=== PATIENT | female | born 1935 | race Caucasian/White ===

== ENCOUNTER 2016-11-26 14:49 | Inpatient (IN) | payer MEDICARE, BC ==
[~2016-11-26] VITALS: Ht 162.6 cm; Wt 131.4 kg
--- NOTE | ~2016-11-26 | ESTC ---
Cardiac Perfusion Imaging Demographics Patient Name GABBI Collado Gender Female Patient Number [id number] Race Visit Number [id number] Ethnicity Corporate ID Room Number G3217 Accession Number [id number] Height 64 inches Date of 1935 Weight 163 pounds Interpreting Ruby Ramirez Date of study 11/28/2016 Physician Supervising /JUAN F Ramirez NM Technologist Yoli Busch MD Ordering Physician Ruby Ramirez Stress Bryanna Lang MD installation technician RVT Stress ECG Reading Ruby Ramirez Nurse Tennille Paez RN Physician Procedure Procedure Type: Nuclear Stress Test:Pharmacological, Lexiscan, Cardiolite Stress Test Procedure Start time: 11/28/2016 10:30 Indications: History of CAD. Risk Factors The patient risk factors include:obesity, hypercholesterolemia and diabetes mellitus. Conclusions Summary Large moderate ischemia involving anteroseptal,anterior and lateral clark. Normal EF and WM. Stress Protocols Resting ECG RSR. Non-specific ST-T changes. Pre-stress physical exam: un changed. Predicted HR: 138 bpm ECG Findings No ECG changes suggestive of ischemia. Arrhythmias No rhythm abnormality. Symptoms No symptoms with Lexiscan infusion. Stress Interpretation Normal hemodynamic response to Lexiscan. No symptoms. No EKG changes of ischemia. No arrythmias. Imaging Results Applied corrections - Motion correction applied High risk findings Summed scores - Summed stress score: 23 - Summed rest score: 13 - Summed difference score: 10 Stress ejection Ejection fraction:61 % EDV :134 ml ESV :52 ml Stroke volume :82 ml LV mass :152 gr LV size:Normal Normal LV function Imaging Protocols Rest Stress Isotope:Tc99m Sestamibi IV Isotope: Tc99m Sestamibi IV Isotope dose:15.2 mCi Isotope dose:42.3 mCi Date:11/28/2016 07:28 Date:11/28/2016 10:52 Technique: SPECT Technique: Gated Supine SPECT Supine Procedure Medications - Regadenoson (Lexiscan) 0.4 mg IV over 10-15 sec. I.V. 0.4 mg. Medical History Admission Data Admission date: 11/28/2016 Admission Time: 08:00 Hospital Status: Inpatient. Signatures dtt: Ashley Beltran dtgopi: 11/28/16 1030 Physician Self Edit
--- NOTE | ~2016-11-26 | ECHO ---
Transthoracic Echocardiography Report (TTE) Demographics Patient Name BRITTANY SEO Date of Study 12/02/2016 Patient Number [id number] Visit Number [id number] Date of 1935 Room Number G6329 Gender Female Number Age 81 year(s) Referring Ruby Ramirez Fishing Instructor Lucy Johnson RVT, Physician MD JENAE Washington MD Physician Interpreting Ruby Ramirez Yard Switcher Physician Supervising Ordering Ruby Ramirez MD/MLP Physician Nurse Stress Campaign Coordinator Conclusions Contractility Score Summary At rest the following contractility abnormalities were noted: Hypokinesis of the Mid anterior, the Mid tennille-septal, the Mid infero-septal, the Apical inferior, the Apical septal, the Apical lateral, the Apical anterior and the Apical cap segments. Contractility of all other segments appeared normal. Summary Technically difficult exam. Definity not used to better delineate due to the patient not having IV access. The estimated left ventricular ejection fraction is 40%.The left ventricle is mildly dilated .Moderate concentric left ventricular hypertrophy.Severely hypokinetic distal half of anerior wall,anterior septum and apex. The left atrium is severely dilated by LA volume index measurement. MAC. Trivial MR. Trivial TR. Compared to previous study dated 11/30/2016 the WMAs and EF of 40% are new(60%). Procedure Type of Study TTE procedure:2D Echocardiogram, M-Mode, Doppler , Color Doppler. Procedure Date Date: 12/02/2016 Start: 08:56 AM Study Location: Inpatient Portable Technical Quality: Fair due to body habitus. Indications:Abnormal ECG and Post PTCA. Appropriate Use Criteria: 9 Patient Status: Routine HR: 79 bpm BP: 148/69 mmHg Allergies - No known allergies. M-Mode/2D Measurements LV Diastolic Dimension: 5.82 cm LV Systolic Dimension: 4.84 cm LV Septum Diastolic: 1.05 cm LV PW Diastolic: 1.24 cm AO Root Dimension: 2.2 cm Cardiac Output: 5.57 l/min LA Dimension: 3.2 cm LVOT: 1.9 cm LVOT VTI: 24.9 cm RV Base: 3.45 cm LV Stroke volume: 70.56 ml RV Length: 7.04 cm TAPSE: 2.02 cm TDI-S': 11 cm/s Doppler Measurements AV Peak Velocity: 1.34 m/s MV Peak E-Wave: 1.01 m/s AV Peak Gradient: 7.18 mmHg MV Peak A-Wave: 1.7 m/s AV Mean Gradient: 4 mmHg MV E/A Ratio: 0.59 LVOT Peak Velocity: 1.11 m/s MV P1/2t: 62 msec TR Gradient:9.99 mmHg PV Peak Velocity: 1.9 m/s Estimated RAP:15 mmHg PV Peak Gradient: 14.44 mmHg Estimated RVSP: 25 mmHg Estimated PASP: 24.99 mmHg E' Septal Velocity: 0.04 m/s A' Septal Velocity: 0.12 m/s E' Lateral Velocity: 0.05 m/s A' Lateral Velocity: 0.15 m/s Findings Left Ventricle The left ventricle is mildly dilated .Moderate concentric left ventricular hypertrophy.LVEF:40%.Distal anterior wall,distal septum and apex are severely hypokinetic. Right Ventricle Normal right ventricle structure and function. Left Atrium The left atrium is severely dilated by LA volume index measurement. Right Atrium The right atrium is not well visualized.Increased RA pressures. Mitral Valve Trivial mitral regurgitation by color Doppler. Mild mitral annular calcification. Aortic Valve Normal aortic valve structure and function. Tricuspid Valve Trivial tricuspid regurgitation by color Doppler. Pulmonic Valve Normal pulmonic valve structure and function. Pericardial Effusion Small anterior pericardial effusion. Miscellaneous Visualized portions of the aortic root and ascending aorta appear normal in size. Pleural Effusion No evidence of pleural effusion. Contractility Score LV regional wall motion:(0-Non visualized 1-Normal 2-Hypokinesis 3-Akinesis 4-Dyskinesis 5-Aneurysm) Signature dtt: Ashley Beltran dtd: 12/02/16 0856 Physician Self Edit
--- NOTE | ~2016-11-26 | CON ---
PATIENT'S NAME: BRITTANY SEO [facility] AGE: 81 Y [address] ROOM: [place] [address] LOCATION: [facility] ADMIT DATE: 11/26/2016 Consultation DISCHARGE DATE: FAMILY PHYSICIAN: TRISH BRANDON MD ATTENDING PHYSICIAN: TRISH BRANDON DATE OF CONSULTATION: 11/27/2016 REFERRING PHYSICIAN: Trish Brandon MD REASON FOR VISIT: Wound Care visit to evaluate and treat a left second toe ulcer. HISTORY OF PRESENT ILLNESS: This is a very pleasant 81-year-old female patient who was admitted to [facility] with nausea/vomiting and dehydration. The patient has a significant history of type 2 diabetes mellitus, hypertension, obesity, coronary artery disease, and venous stasis dermatitis. She reports she did not know that she had an ulcer to her left foot until 2 days ago. She reports never having diabetic ulcers before. She does not wear custom orthotics or diabetic footwear. She does not wear gradient compression devices. She denies peripheral neuropathy. She denies foot pain. She reports a good oral intake. She reports her nausea and vomiting came on about 4 days prior to admission. She denies fevers, chills, or sweats. She reports she is able to tolerate food well now. She lives in [place] with her son. PAST MEDICAL HISTORY: Diabetes mellitus, type 2; hypertension; obesity; coronary artery disease; venous stasis dermatitis; cardiac stent; lower leg edema; and history of uterine cancer. PAST SURGICAL HISTORY: Bilateral total knee arthroplasties, right total hip surgery, bilateral cataract removals, total abdominal hysterectomy, and cardiac stents. FAMILY HISTORY: The patient's parents did not suffer from lower leg edema or diabetic foot ulcers. ALLERGIES: NO KNOWN MEDICATION ALLERGIES. SOCIAL HISTORY: The patient lives with her son in [place], [place]. She is normally able to complete her activities of daily living. She denies tobacco, alcohol, or PATIENT'S NAME: BRITTANY SEO [facility] AGE: 81 Y [address] ROOM: [place] [address] LOCATION: [facility] ADMIT DATE: 11/26/2016 Consultation DISCHARGE DATE: FAMILY PHYSICIAN: TRISH BRANDON MD ATTENDING PHYSICIAN: TRISH BRANDON illicit drug use. CURRENT MEDICATIONS: Pertinent to this dictation is Rocephin 1 g IV b.i.d. Please refer to the medication administration record for further details. REVIEW OF SYSTEMS: A 10-point review of systems was completed and all are negative except as mentioned above in the HPI. PHYSICAL EXAMINATION: VITAL SIGNS: Temperature 97.4, pulse 81, respirations 24, blood pressure 149/66, and pulse oximetry 92% on room air. Height 5 feet 4 inches and weight 130.0 kg. GENERAL: The patient is alert and orientated x3. Pleasant and cooperative with cares. In no acute distress. Appears younger than her stated age. HEENT: Head is normocephalic and atraumatic. Anicteric sclerae. Oral mucosa intact. NECK: Supple. NEUROLOGICAL: Grossly nonfocal. CARDIAC: Regular rate and rhythm. ABDOMEN: Round and nontender. EXTREMITIES: +2 pedal pulses. +2 lower leg edema. Red venous stasis dermatitis changes to her lower extremities. Large calves noted. Capillary refill intact. Extremities are warm to touch. SKIN: To the patient's left second toe at the tip she had a hard callus buildup with black coloring noted to the periwound. No erythema or fluctuance noted. No drainage noted. After paring callus, a superficial wound is noted. Wound measures 1.0 cm width x 1.0 cm length x 0.1 cm depth. Wound bed is moist pink. Scant serous exudate noted. No purulent exudate noted. Periwound intact. Toe is not erythemic. PROCEDURE NOTE: Today's procedure is paring of callus buildup to the patient's left second toe. The patient verbally consented to treatment prior to paring. I used a sterile #11 blade to excise the nonviable callus and black dried blood from the periwound. The patient tolerated well and had no feeling. Scant bloody exudate noted, hemostasis was achieved by using manual pressure. LABORATORY AND DIAGNOSTIC DATA: White blood cell count 12.9, hemoglobin 13.0, hematocrit 40.4, and platelets 206. Sodium 139, potassium 4.0, chloride 105, bicarbonate 25, BUN 23, creatinine 0.8, and glucose 189. Albumin 3.3. Hemoglobin A1c 9.1. X-ray to left foot showed normal bone alignment, normal joint spaces, no fractures, no periosteal reaction or bone destruction indicative of osteomyelitis. PATIENT'S NAME: BRITTANY SEO [facility] AGE: 81 Y [address] ROOM: [address] [place], [place] [address] LOCATION: [facility] ADMIT DATE: 11/26/2016 Consultation DISCHARGE DATE: FAMILY PHYSICIAN: TRISH BRANDON MD ATTENDING PHYSICIAN: TRISH BRANDON ASSESSMENT AND PLAN: Again, this is an 81-year-old female patient who was admitted to [facility] with nausea/vomiting and dehydration. Wound Care was consulted to evaluate and assess a left second toe ulcer. 1. Left second toe neuropathic foot ulcer. The patient denies trauma to the site; however, she did have dry blood to the periwound and may have bumped this area without knowing it. I was able to remove 100% of the callus buildup. The patient has a good blood flow and x-ray is negative for osteomyelitis. She does not wear foot orthotics or diabetic shoes. She is to have an appointment with [facility] on discharge for orthotics. No purulent exudate noted. We will treat the wound site with Iodosorb antimicrobial gel daily. I instructed the patient on how to use the gel and told her to take home on discharge. 2. Lower leg venous stasis dermatitis. The patient was instructed to elevate her legs throughout her hospitalization. Nursing is to apply Tubigrip size E to her lower extremities from her toes to the popliteal crease, on in the morning and off at bedtime. I also gave her son information to order Jobst compression stockings 20 to 30 mmHg on discharge. 3. Uncontrollable type 2 diabetes mellitus with insulin use. Diabetic consult was ordered. I would like to thank Dr. Brandon for this consultation. SURYA THOMPSON APRN FOR MD ALEXSANDRA SUTTON/susan /[id number] d: 11/27/16 1717 t: 03/06/17 1143, CONSULTATION REPORT
--- NOTE | ~2016-11-26 | CON ---
PATIENT'S NAME: BRITTANY PARADA [facility] AGE: 81 Y [address] ROOM: [address] [place] [address] [place] [facility] [place] DATE: 11/26/2016 Consultation DISCHARGE DATE: FAMILY PHYSICIAN: TRISH BRANDON MD ATTENDING PHYSICIAN: TRISH BRANDON REFERRING PHYSICIAN: Matthew Ruiz MD An 81-year-old female patient of Dr. Brandon. HISTORY OF PRESENT ILLNESS: Dear Dr. Brandon, thank you for asking me to see Ms. Parada, who is an 81- year-old female patient, who had some chest pain this morning. She does not recollect the nature of the chest pain any longer. Seems as if it lasted for about 30 minutes to an hour or so. She has prior history of coronary artery disease and had stents placed in 2003 to the RCA and obtuse marginal. In 2008, those stents were still patent. The patient does not recollect all of those information. She in fact had an [place] in 2003 before her stent was placed. The patient denies history of congestive heart failure, atrial fibrillation, or rheumatic fever. The patient has history of hypertension, type 2 diabetes, and elevated cholesterol. She is a nonsmoker and there is no family history of premature coronary artery disease. The patient is admitted mostly for nausea, vomiting, and dehydration of about 3 days' duration of unknown etiology. In addition, she was found to have a left second toe ulcer for which she is being treated in the hospital down. Now patient denies any chest pain. She has been in functional class 3 for a long time now as far as she can tell. There is no paroxysmal nocturnal dyspnea or orthopnea. She denies any syncope, presyncope, palpitations, lightheadedness, or dizziness. She does have history of ankle swelling. CURRENT MEDICATIONS: Her current list of medications are: 1. NovoLog Mix 70/30 per sliding scale. 2. Lantus 100 units per mL solution, 80 units given subcutaneously at bedtime. 3. Lasix 40 mg once a day. 4. Simvastatin 20 mg a day. 5. Potassium chloride 20 mEq once a day. 6. Metoprolol 25 mg 1/2 tablet twice a day. 7. Benazepril and hydrochlorothiazide 20/12.5, 1 tablet a day. 8. Aspirin 81 mg a day. 9. NovoLog insulin. PATIENT'S NAME: BRITTANY PARADA [facility] AGE: 81 Y [address] ROOM: [place] [address] [place] [facility] [place] DATE: 11/26/2016 Consultation DISCHARGE DATE: FAMILY PHYSICIAN: TRISH BRANDON MD ATTENDING PHYSICIAN: TRISH BRANDON ALLERGIES: NO KNOWN DRUG ALLERGIES. PAST MEDICAL HISTORY: 1. Bilateral total knee replacement. 2. Bilateral total hip replacement. 3. Bilateral cataract surgery. 4. Total hysterectomy and bilateral oophorectomy. 5. History of idiopathic thrombocytopenic purpura. 6. DJD. SOCIAL HISTORY: The patient lives at home with her grandson who takes care of her. Her appetite and weight have been good. She is . She never smoked. She denies drinking alcohol. FAMILY HISTORY: No premature coronary artery disease. REVIEW OF SYSTEMS: A 12-point review of systems reveal: 1. Reveal moderate obesity. 2. Corrective lenses. 3. History of sleep apnea. She is unable to tolerate CPAP, but does use oxygen. PHYSICAL EXAMINATION: VITAL SIGNS: On examination, her blood pressure is 140/67, heart rate is 70 and regular, respirations are 16, and afebrile. HEENT: Normal. NECK: Supple. No JVD, thyromegaly, lymphadenopathy, or carotid bruit. HEART: PMI is not well located. First and second sounds are soft. There is a grade 2/6 systolic murmur best heard in the aortic area. CHEST: Clear. ABDOMEN: Obese, soft. EXTREMITIES: Reveal no edema. CENTRAL NERVOUS SYSTEM: Intact. ASSESSMENT: An 81-year-old female patient with known coronary artery disease with multi- vessel stenting in 2003. Currently complaining about chest pain. She is pain free at the moment though. RECOMMENDATIONS: We will rule her out for [place] and then try to get an echocardiogram done because PATIENT'S NAME: BRITTANY PARADA [facility] AGE: 81 Y [address] ROOM: [place] [address] [place] [facility] [place] DATE: 11/26/2016 Consultation DISCHARGE DATE: FAMILY PHYSICIAN: TRISH BRANDON MD ATTENDING PHYSICIAN: TRISH BRANDON of her underlying heart murmur and then also we will do a Lexiscan Cardiolite study before recommending any further additional workup. Again, I appreciate this opportunity to participate in the care of Ms. Parada. MD EHSAN PILLAI/susan /[id number] d: 11/27/16 2332 t: 12/17/16 1324, CONSULTATION REPORT
--- NOTE | ~2016-11-26 | DS ---
PATIENT'S NAME: BRITTANY SEO [facility] AGE: 81 Y [address] ROOM: [address] [place] [address] LOCATION: [facility] ADMIT DATE: 11/28/2016 Discharge Summary DISCHARGE DATE: 12/06/2016 FAMILY PHYSICIAN: Trish Brandon MD ATTENDING PHYSICIAN: Trish Brandon FINAL DIAGNOSES: 1. Nausea and vomiting, probably viral etiology versus gastroesophageal reflux, resolved. 2. Congestive heart failure, mixed type, acute on chronic. 3. Diabetes mellitus type 2, insulin requiring, present on admission with history of hyperglycemia. 4. Hyperlipidemia. 5. Hypokalemia, replacement. 6. Hypertension, essential . 7. Exogenous obesity. 8. Early dementia, probably Alzheimer's. HOSPITAL COURSE: Please see history and physical. The patient was admitted with a toe that looked to be infected consistent with a diabetic foot ulcer/cellulitis. Second, she had this nausea and vomiting and was unable to eat or drink, and I felt she was clinically becoming dehydrated. On admission, she was seen by the orthopedic team in regard to her second toe, and x-rays were obtained of the involved foot showed no sign of osteomyelitis on plain film x-ray. Because of her history of coronary artery disease, I asked that she be seen by the tavern keeper, Dr. Beltran. Please see his notes daily dictation in the chart, and his catheterization report the day of the patient was taken for cardiac catheterization. Dr. Beltran ordered a CT of the chest here, that showed congestive heart failure, but no sign of mass, tumor, or pulmonary embolus, The patient was given diuresis, IV antibiotics, and local therapy to treat her congestive heart failure on one hand and her foot infection on the other. Please see Dr. Beltran's notes about post catheterization. The patient was felt to reach maximal hospital benefit and lost a great number of pounds from diuresis and was clinically improved. On dismissal, it was felt that her best case scenario would be to be placed in a correction, so Care Management arranged that, and she was dismissed to the correction on the date shown on the med list shown on a diabetic diet with activity with OT and PT involved. She is to see me back in the office in a week and see Dr. PATIENT'S NAME: BRITTANY SEO [facility] AGE: 81 Y [address] ROOM: [id number] [place] [address] [facility] ADMIT DATE: 11/28/2016 Discharge Summary DISCHARGE DATE: 12/06/2016 FAMILY PHYSICIAN: Trish Brandon MD ATTENDING PHYSICIAN: [facility]. TRISH BRANDON MD STUDIO DIRECTOR/modl /[id number] d: 12/15/16 2119 t: 12/19/16 0740, DISCHARGE SUMMARY
--- NOTE | ~2016-11-26 | ECHO ---
Transthoracic Echocardiography Report (TTE) Demographics Patient Name BRITTANY SEO Date of Study 11/28/2016 Patient Number [id number] Visit Number [id number] Date of 1935 Room Number G3217 Gender Female Number Age 81 year(s) Referring Ruby Ramirez Assistant Women'S Soccer Coach Cj Fraire RVT Physician MD Rodney Paez MD Physician Interpreting Ruby Ramirez Manager Program Physician Supervising Ordering Ruby Ramirez MD/MLP Physician Nurse Stress Ornamental Iron Worker Conclusions Contractility Score Summary Normal Left Ventricular contractility was noted. Summary Technically difficult exam. The estimated left ventricular ejection fraction is 60%.Mild.concentric left ventricular hypertrophy.Normal size and WM. MAC. Trivial MR. Trivial TR with normal pulmonary pressures. Procedure Type of Study TTE procedure:2D Echocardiogram, M-Mode, Doppler , Color Doppler. Procedure Date Date: 11/28/2016 Start: 11:09 AM Study Location: Inpatient Portable Technical Quality: Fair due to body habitus. Indications:Coronary artery disease. Appropriate Use Criteria: 9 Patient Status: STAT HR: 72 bpm BP: 198/81 mmHg M-Mode/2D Measurements LV Diastolic Dimension: 5.3 cm LV Systolic Dimension: 3.27 cm LV Septum Diastolic: 1.23 cm LV PW Diastolic: 1.28 cm AO Root Dimension: 2.5 cm Cardiac Output: 4.41 l/min AV Cusp Separation: 1.5 cm RV Diastolic Dimension: 2.89 cm LA volume: 58 ml LVOT: 1.8 cm RV Base: 3.03 cm LVOT VTI: 24.1 cm RV Mid: 2.63 cm LV Stroke volume: 61.3 ml TAPSE: 2.33 cm TDI-S': 13.4 cm/s Doppler Measurements AV Peak Velocity: 1.43 m/s MV Peak E-Wave: 0.93 m/s AV Peak Gradient: 8.18 mmHg MV Peak A-Wave: 1.51 m/s AV Mean Gradient: 5 mmHg MV E/A Ratio: 0.62 LVOT Peak Velocity: 1.12 m/s MV P1/2t: 93 msec TR Gradient:20.61 mmHg PV Peak Velocity: 1.35 m/s Estimated RAP:8 mmHg PV Peak Gradient: 7.29 mmHg Estimated RVSP: 29 mmHg Estimated PASP: 28.61 mmHg E' Septal Velocity: 0.05 m/s A' Septal Velocity: 0.1 m/s E' Lateral Velocity: 0.05 m/s A' Lateral Velocity: 0.09 m/s Findings Left Ventricle Mild LVH with normal size,EF and WM. Right Ventricle Normal right ventricle structure and function. Left Atrium Normal left atrial size. Right Atrium Normal right atrial size. Mitral Valve Moderate mitral annular calcification. Trivial mitral regurgitation by color Doppler. Aortic Valve The aortic valve is mildly sclerotic. Tricuspid Valve The tricuspid valve is not well visualized. Trivial tricuspid regurgitation by color Doppler. Pulmonic Valve The pulmonic valve is not well visualized. Pericardial Effusion No evidence of pericardial effusion. Miscellaneous Visualized portions of the aortic root and ascending aorta appear normal in size. Pleural Effusion No evidence of pleural effusion. Contractility Score LV regional wall motion:(0-Non visualized 1-Normal 2-Hypokinesis 3-Akinesis 4-Dyskinesis 5-Aneurysm) Signature dtt: Ashley Beltran dtd: 11/28/16 1109 Physician Self Edit
--- NOTE | ~2016-11-26 | CON ---
PATIENT'S NAME: BRITTANY SEO [facility] AGE: 81 [address] ROOM: [id number] [place] [address] LOCATION: [facility] ADMIT DATE: 11/26/2016 Consultation DISCHARGE DATE: FAMILY PHYSICIAN: TRISH BRANDON MD ATTENDING PHYSICIAN: TRISH BRANDON REFERRING PHYSICIAN: Christopher Fermin MD CHIEF COMPLAINT: Left second toe ulcer. HISTORY: The patient is an 81-year-old known diabetic, admitted by Dr. Brandon for nausea and vomiting, and a toe ulcer. She is accompanied by her grandson today, who helps give inflow to the history. She sees Dr. Dove routinely for foot care. She was last seen a couple of months ago. At that point, there was no mention of this wound. Now just couple of days ago, she was sitting in her recliner when a neighbor noticed a discoloration at the end of her toe. She then went on to develop a very significant nausea and vomiting so was seen by Dr. Brandon. Initially, she made an appointment for the nausea and vomiting, but her grandson mentioned the toe at the time of the evaluation. Dr. Brandon recommended further evaluation and treatment of the toe. She was then admitted to [facility]. Again, she has been seen by wound care. She is currently on Rocephin IV. Upon initial evaluation by Wound Care, a debridement of the callus was carried out. For wound care, they were to begin daily Iodosorb dressing changes to the toe and begin compression and elevation for the legs. We were asked for consultation. On exam today, the patient denies any significant loss of sensation. She denies any issues with the foot or ankle including no pain in the second toe with shoe wear. She does not currently wear any type of orthotics or diabetic shoes. She did have an issue just recently with her diabetes control as she was using her FlexPen incorrectly and so actually not receiving any medication daily. Her medication has since been changed, and she states it is now more controlled. She has seen a diabetic counselor at [facility]. She denies any other known ulcers. REVIEW OF SYSTEMS: All systems are negative on current exam except for that mentioned above. For complete past medical history, social history, family history, and current medications, please see Dr. Brandon' admitting H and P. ALLERGIES: NO KNOWN DRUG ALLERGIES. PHYSICAL EXAMINATION: GENERAL: The patient is well nourished, elderly female. On exam, she is PATIENT'S NAME: BRITTANY SEO [facility] AGE: 81 Y [address] ROOM: [place] [address] LOCATION: [facility] ADMIT DATE: 11/26/2016 Consultation DISCHARGE DATE: FAMILY PHYSICIAN: TRISH BRANDON MD ATTENDING PHYSICIAN: TRISH BRANDON alert and oriented to person, place, and time. She answers all questions appropriately. She is accompanied by her grandson today, who also gave inflow to the history. HEENT: Hearing is grossly intact. There are no visible deformities. RESPIRATORY: Rate is regular. There is no audible wheezing. CIRCULATORY: Dorsalis pedis is 2+ on the left. Posterior tibialis is 0.5+. She does have brisk cap refill in the left foot. MUSCULOSKELETAL: Exam of the left lower extremity reveals obvious venous stasis. There is no altered temperature here to indicate cellulitis. Exam of the second toe reveals a claw toe deformity with an area of discoloration at the tip of the toe consistent with a superficial wound. The wound does encompass the entire tip of her toe but does not exhibit any depth. There is no fluctuance, no drainage, no erythema, no tenderness. Sensation is grossly intact throughout the distal extremity, although the patient could not distinguish the individual toe when asked to identify location of sensation. Again, dorsalis pedis is 2+, posterior tibialis is about a 0.5+. There is no tenderness elsewhere throughout the foot. No proximal streaking to indicate cellulitis. She is able to actively flex and extend all joints without difficulty or pain. Motor strength is 5/5 in all major muscle groups. Exam of the right lower extremity reveals obvious evidence of venous stasis discoloration, but again, no evidence of cellulitis, again dorsalis pedis pulses 2+. No tenderness to palpation throughout. She is able to flex and extend all joints without issue. Motor strength is 5/5 in all major muscle groups. Exam of the bilateral upper extremities reveal, no tenderness to palpation throughout. Full pain-free range of motion throughout all joints. Motor strength is 5/5 in all major muscle groups. RADIOGRAPHIC INTERPRETATION: Review of foot films show no evidence of osteomyelitis. She has obvious degenerative changes throughout the midfoot specifically at the talonavicular joint. 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 RECOMMENDATION: Dr. Fermin and I evaluated this patient and formulated the following treatment plan. I had a long discussion with the patient, her grandson, also present, regarding her physical exam findings as well as radiographs. At this point, there is no evidence of deep infection here, and her wound is secondary to her lack of sensation in the foot as well as chronic pressure from the claw toe. At this point, the callus has been debrided by Wound Care, and it shows a very superficial wound care. Wound Care has advised daily Iodosorb dressing changes, and we recommend that she continue that as instructed. She is set up PATIENT'S NAME: BRITTANY SEO [facility] AGE: 81 Y [address] ROOM: [place] [address] LOCATION: [facility] ADMIT DATE: 11/26/2016 Consultation DISCHARGE DATE: FAMILY PHYSICIAN: TRISH BRANDON MD ATTENDING PHYSICIAN: TRISH BRANDON to see [facility] upon discharge for a pressure relieving orthotics. We recommend she carry this out as instructed. We will plan to have her follow up with Wound Care upon discharge. If this wound continues to be an issue, we would recommend she follow up with us in the office for outpatient exam and possible subsequent claw-toe reconstruction with wound debridement as needed. They understand and agree with this plan and have no further questions. KELSI TAYLOR FOR CHRISTOPEHR FERMIN MD SB/lizziel /[id number] d: 11/27/16 2158 t: 12/13/16 1523, CONSULTATION REPORT
--- NOTE | ~2016-11-26 | CATH ---
Cardiac Diagnostic + PCI Report Demographics Patient Name GABBI Collado Gender Female Date of 1935 Age 81 year(s) Patient Number [id number] Date of Study 11/30/2016 Visit Number [id number] Room Number G6[address] [place] [id number] Ht 162.56 cm Wt 125.7 kg Referring Brandon Kevin Paez Primary Physician Physician Performing Ruby Secondary Physician Physician Ashley BECERRIL Diagnostic Ruby Assisting Physician Physician Ashley BECERRIL Interventional Ruby Physician Fry Cook Physician Ashley BECERRIL Findings and Conclusions Diagnostic Findings and Conclusion 1. LVEDP 23. 2. Severe mid-LAD lesion and sequential moderate lesion. DK 2 flow. 3. Moderate RCA lesion. 4.Calcification involving proximal coronary vessels. Stents seen. Diagnostic Recommendations PCI LAD. Interventional Findings and Conclusion Guide engagement complicated by embolic material occluding proximal LAD completely. Wired LAD and Diag. Multiple series of suction catheter runs and PTCA and stenting of the mid LAD lesions with RENNY x2. Final image shows LAD and D1 to be wide open with DK 3 flow. Still thrombus seen in the stent. This will be managed with anti platelet agents and anti thrombotic agents. Interventional Recommendations Medical therapy. Procedure Description Informed consent was obtained in the written and verbal form after the risks and benefits were explained. The patient had no further questions and agreed to proceed. The planned puncture-incision site(s) were shaved and prepped with ChloraPrep and draped in the usual sterile manner. Supplemental oxygen and pain control medications were delivered by a registered nurse under physician guidance. Surface ECG rhythm, blood pressure measurement, and pulse oximetry were monitored throughout the procedure. Arterial access. The access site was infiltrated with lidocaine. The vessel was entered with the Seldinger technique. A sheath was advanced into the vessel and used for catheter placement. Selective left coronary angiography. A catheter was advanced into the left coronary vessel ostium under Fluoroscopic guidance. Contrast was injected by hand. Images were obtained in multiple projections. Selective right coronary angiography. A catheter was advanced into the right coronary vessel ostium under fluoroscopic guidance. Contrast was injected by hand. Images were obtained in multiple projections. Left heart catheterization. A catheter was advanced across the aortic valve to the left ventricle under fluoroscopic guidance. Resting hemodynamics were obtained. Angioplasty and Stent Placement: A guiding catheter was used to intubate the vessel. A 0.14 wire was then used to cross the lesion. A balloon catheter was placed across the lesion and inflated. The balloon catheter was then removed. A Drug Eluting Stent was placed and inflated. Post placement angiograms were performed. Thrombectomy. A guide catheter was placed in the vessel ostium. An aspiration catheter was advanced over the wire and thrombectomy was performed. Angioplasty and Stent Placement: A guiding catheter was used to intubate the vessel. A 0.14 wire was then used to cross the lesion. A balloon catheter was placed across the lesion and inflated. The balloon catheter was then removed. A Drug Eluting Stent was placed and inflated. Post placement angiograms were performed. Arterial artery hemostasis was achieved. EKG changes while still on table. Patient re-prepped. Left and right angiography performed. Sheath sutured in to place. Hemostasis was achieved. The patient was transferred to ICU via cart accompanied by a nurse. The patient left the laboratory in stable condition. Diagnostic Cath Status: Urgent Interventional Cath Status: Urgent Procedure Procedure Type Diagnostic procedure:Angiography:, Coronary Angios w/[facility] PCI procedure:Drug Eluting Coronary Stent:, LAD, Thrombectomy-Mechanical Indications: Abnormal Stress Test. The procedure was explained in detail to the patient. Risks, complications and alternative treatments were reviewed. Written consent was obtained. Medications Reviewed with Patient prior to Procedure. Angiographic Findings Dominance: Right Cardiac Arteries and Lesion Findings LMCA: Luminal irregularities. LAD: Moderate diffuse disease after D1 - 99% followed by 70% then 50% lesions. Diag 1 medium sized, luminal irregularities. Lesion on Mid LAD: Proximal subsection.99% stenosis 16 mm length reduced to 0%. Pre procedure DK II flow was noted. Post Procedure DK III flow was present. The guidewire cross was successful.The lesion was diagnosed as a high risk lesion.Culprit lesion. Devices used - Luge Wire .014 x 182. Number of passes: 1. - Luge Wire .014 x 182. Number of passes: 1. - Emerge Balloon 2.5 x 15. 3 inflation(s) to a max pressure of: 6 verónica. - Emerge Balloon 2.0 x 15. 5 inflation(s) to a max pressure of: 14 verónica. - Promus Premier 2.25 x 16 Stent. 1 inflation(s) to a max pressure of: 15 verónica. - Pronto LP Aspiration Catheter. Number of passes: 1. - Promus Premier 2.25 x 12 Stent. 1 inflation(s) to a max pressure of: 11 verónica. - Luge Wire .014 x 182. Number of passes: 1. - Emerge Balloon 2.0 x 15. 1 inflation(s) to a max pressure of: 10 verónica. - Emerge Balloon 2.0 x 15. 1 inflation(s) to a max pressure of: 10 verónica. - Reed Catheter. Number of passes: 1. - Reed Catheter. Number of passes: 1. Lesion on 1st Diag: Proximal subsection. Devices used - Emerge Balloon 2.0 x 15. 1 inflation(s) to a max pressure of: 6 verónica. - Reed Catheter. Number of passes: 1. - Pronto LP Aspiration Catheter. Number of passes: 1. Lesion on Mid LAD: Distal subsection.70% stenosis 12 mm length reduced to 0%. Pre procedure DK II flow was noted. Post Procedure DK III flow was present. The guidewire cross was successful.The lesion was diagnosed as a high risk lesion.Culprit lesion. Devices used - Promus Premier 2.25 x 12 Stent. 2 inflation(s) to a max pressure of: 15 verónica. Lesion on Dist LAD: Mid subsection.50% stenosis . LCx: Diffusely diseased. OM 1 100% stenosis. OM2 small. OM3 mild diffuse disease. Lesion on 1st Ob Pari: Proximal subsection.100% stenosis .Chronic total occlusion. RCA: Dominant. Moderate diffuse disease after JADA branch for 50%. Stent mid-RCA patent. PL large, 40% stenosis. PDA 30% ostial stenosis. There is a previous stent on Mid RCA Mid subsection showing wide patency. Lesion on Dist RCA: Mid subsection.50% stenosis . Lesion on 1st RPL: Mid subsection.40% stenosis . Lesion on R PDA: Ostial.30% stenosis . Coronary Tree Procedure Data Procedure Date Date: 11/30/2016Start: 10:41 AMEnd: 03:18 PM Entry Locations - Antegrade Percutaneous access was performed through the Right Femoral artery (Primary location). A 7 Fr sheath was inserted. Hemostasis was successfully obtained using Suture. Closure Comments: Line sutured into place by Patrick Funez . - Percutaneous access was performed through the Right Femoral vein. Entry Comments: Unable to obtain venous access.. Procedure Medications Order and Administration + + + + + !Time !Medication !Dosage !Route ! + + + + + !11/30/2016 10:41 AM !Fentanyl !25 mcg !I.V. ! + + + + + !11/30/2016 11:12 AM !Nitroglycerin !25 mcg/min !I.V. drip ! + + + + + !11/30/2016 11:12 AM !Hydralizine !10 mg !I.V. ! + + + + + !11/30/2016 11:13 AM !Heparin (ACC_3) !13599 units !I.V. bolus ! + + + + + !11/30/2016 11:25 AM !Integrilin (ACC_7) !22.6 mg !I.V. bolus ! + + + + + !11/30/2016 11:29 AM !Heparin (ACC_3) !5000 units !I.V. bolus ! + + + + + !11/30/2016 11:30 AM !Fentanyl !50 mcg !I.V. ! + + + + + !11/30/2016 11:33 AM !Heparin (ACC_3) !2000 units !I.V. bolus ! + + + + + !11/30/2016 11:35 AM !Nitroglycerin !10 mcg/min !I.V. drip ! + + + + + !11/30/2016 11:36 AM !Integrilin (ACC_7) !22.6 mg !I.V. bolus ! + + + + + !11/30/2016 11:37 AM !Integrilin (ACC_7) !2 mcg/kg/min !I.V. drip ! + + + + + !11/30/2016 11:39 AM !Nitroglycerin ! !I.V. drip ! + + + + + !11/30/2016 11:39 AM !Zofran !mg !I.V. ! + + + + + !11/30/2016 11:43 AM !Oxygen !2 l/min ! ! + + + + + !11/30/2016 11:49 AM !Heparin (ACC_3) !5000 units !I.V. bolus ! + + + + + !11/30/2016 11:59 AM !Nitroglycerin !200 mcg !I.C. ! + + + + + !11/30/2016 11:59 AM !0.9% NaCl !50 ml !I.V. bolus ! + + + + + !11/30/2016 12:03 PM !Fentanyl !25 mcg !I.V. ! + + + + + !11/30/2016 12:05 PM !Heparin (ACC_3) !2000 units !I.V. bolus ! + + + + + !11/30/2016 12:13 PM !Oxygen !4 l/min ! ! + + + + + !11/30/2016 12:19 PM !Oxygen !6 l/min ! ! + + + + + !11/30/2016 12:21 PM !Oxygen !8 l/min ! ! + + + + + !11/30/2016 12:39 PM !Heparin (ACC_3) !3000 units !I.V. bolus ! + + + + + !11/30/2016 12:47 PM !Integrilin (ACC_7) !20 mg !I.C. ! + + + + + !11/30/2016 12:00 PM !Integrilin (ACC_7) !20 mg !I.C. ! + + + + + !11/30/2016 12:56 PM !Nitroglycerin !200 mcg !I.C. ! + + + + + !11/30/2016 12:57 PM !0.9% NaCl !50 ml !I.V. bolus ! + + + + + !11/30/2016 01:25 PM !0.9% NaCl !30 ml/hr !I.V. bolus ! + + + + + Devices Used - A6 Fr. BS JR 4 Diag. Catheterwas used for:Right coronary angiography.Unable to cannulate the vessel. - A6 Fr. BS JR 4 Diag. Catheterwas used for:LV Pressures. - A6 Fr. JJ 3DRC Diag. Catheterwas used for:Right coronary angiography. - A6 Fr. BS JL 4 Diag. Catheterwas used for:Left coronary angiography. - A6 Fr. XB 3.5 Guide Catheterwas used for:LAD Intervention. - A6 Fr. BS JL 4 Diag. Catheterwas used for:Left coronary angiography. - A6 Fr. JJ 3DRC Diag. Catheterwas used for:Right coronary angiography. - A6 Fr. BS JR 4 Diag. Catheter. Comments: Not used per physician.. Contrast Material - Isovue 487007 ml Fluoroscopy Time: Diagnostic: 43:48 minutes. Total: 43:48 minutes. Fluoroscopy Dose: Diagnostic: 93735 mGy. Total: 18988 mGy. Estimated Blood Loss: 250 ml. Medical History Performed Procedures and Imaging Results - Echocardiographywas performed.(EF 60%). Allergies - No known allergies. Risk Factors The patient risk factors include:prior PCI on 12/06/2007;peripheral arterial disease, obesity, physical activity, treated hypercholesterolemia, treated hypertension, insulin-treated diabetes mellitus, last creatinine: 0.7 mg/dl, creatinine clearance: 122.96 ml/min, dyslipidemia and prior CO . Admission Data Admission Date: 11/28/2016 Admission Time: 08:00 AM Insurance Payors: Medicare. Admission Medications + +------+------+ + + + + !Medication !Dosage!Times !Last !Last !Administered !Comments ! ! ! !Per !Delivery !Delivery ! ! ! ! ! !Day !Date !Time ! ! ! + +------+------+ + + + + !Aspirin ! ! ! ! ! ! ! !(any) ! ! ! ! ! ! ! + +------+------+ + + + + !KATERINE ! ! ! ! ! ! ! !Inhibitor ! ! ! ! ! ! ! !(any) ! ! ! ! ! ! ! + +------+------+ + + + + !Beta Osman! ! ! ! ! ! ! !(any) ! ! ! ! ! ! ! + +------+------+ + + + + !Statin (any)! ! ! ! ! ! ! + +------+------+ + + + + Clinical Evaluation Leading to Procedure - The patient's CAD presentation was assessed as: Unstable angina. - The patient's anginal syndrome during the past two weeks was assessed as: Class IV according to the [place] Cardiovascular Society Classification System (CCS). Anti-anginal medications were prescribed during the past two weeks. The medication is: Beta Blockers. - The patient has been in a state of heart failure within the past two weeks. - The patient's heart failure status was assessed as NYHA Class III, with CHF symptoms of Congestion on CXR. Hemodynamics Condition: Rest O2 Consumption: Estimated: 198.49Heart Rate: 67 bpm Pressures (mmHg) +-----+ + !Site !Pressure ! +-----+ + !LV !216/10 ,24 ! +-----+ + !LV !204/6 ,23 ! +-----+ + !LV !209/7 ,22 ! +-----+ + !AO !206/75 (125) ! +-----+ + !LV !208/7 ,19 ! +-----+ + !AO !203/73 (123) ! +-----+ + !AO !177/89 (126) ! +-----+ + !AO !163/75 (110) ! +-----+ + !AO !141/69 (98) ! +-----+ + !AO !130/69 (92) ! +-----+ + !AO !161/77 (111) ! +-----+ + !AO !164/80 (114) ! +-----+ + !AO !142/65 (97) ! +-----+ + !AO !172/78 (117) ! +-----+ + !AO !8/6 (7) ! +-----+ + !AO !86/53 (61) ! +-----+ + !AO !147/75 (105) ! +-----+ + !AO !153/96 (123) ! +-----+ + !AO !7/5 (5) ! +-----+ + !AO !154/84 (112) ! +-----+ + !AO !176/83 (123) ! +-----+ + !AO !131/58 (90) ! +-----+ + !AO !151/74 (109) ! +-----+ + !AO !157/77 (113) ! +-----+ + !AO !236/235 (233) ! +-----+ + !AO !/ (238) ! +-----+ + !AO !/ (237) ! +-----+ + !AO !/ (236) ! +-----+ + !AO !175/71 (110) ! +-----+ + !AO !171/74 (109) ! +-----+ + !AO !173/75 (111) ! +-----+ + !AO !136/66 (90) ! +-----+ + Valve Gradients and Areas + +---------+---------+---------+ +---------+ + !Valve !Peak !Mean !Area !Index !Flow !Source ! + +---------+---------+---------+ +---------+ + !Aortic !3 !0 ! ! ! ! ! + +---------+---------+---------+ +---------+ + !Aortic !3 !0 ! ! ! ! ! + +---------+---------+---------+ +---------+ + Shunts Oxygen Values O2 Capacity 176.8 O2 Consumption 198.49 Discharge Data Discharge Date: 12/06/2016 Hospital Status: Inpatient Signatures dtt: Ashley Beltran dtd: 11/30/16 1041 Physician Self Edit
[~2016-11-26 14:49] MED LIST: ASPIRIN LO-DOSE81 MG PO; BENAZEPRIL-HCT1 EAC1 PO; GLUCOPHAGE1000 MG PO; K-TAB ER20 MEQ PO; LANTUS SOL100 UNIT/1 SUB-Q; LASIX40 MG PO; LOPRESSOR25 MG PO; NOVOLOG FL100 UNIT/1 SUB-Q; OMNICEF 300MG300 MG PO; ZOCOR20 MG PO
--- NOTE | 2016-11-26 17:42 | NUR ---
AAOx3. N/V/D at home and prior to arrival to floor. Moves slowly w/difficulty transferring from w/c to toilet; toilet to bed. 2+PA to boost. IV to LUUA. IVF tra 125ml. Abdominal folds and groin yeasty and red. buttock crease, midline and upper inner thighs darkened/reddened blanchable. AC/HS; type 2 diabetic. On RA; has CPAP but does not use at home because cannot manipulate application. L)foot 2nd toe necrotic. Hypertensive, afebrile. Son at and very informative and helpful.
[2016-11-26 21:16] LABS: BASOPHIL % 0.2 %; EOSINOPHIL # 0.1 K/uL (0.0-0.5); EOSINOPHIL % 0.7 %; HEMATOCRIT 40.4 % (30.0-46.0); IMMATURE GRANULOCYTE % 0.2 %; LYMPHOCYTE # 1.7 K/uL (0.8-4.0); MCHC 32.2 gm/dL (32.0-36.5); MCV 87.1 fl (83.0-98.0); MONOCYTE # 1.5 K/uL (0.0-1.0); MONOCYTE % 11.3 %; MPV 11.5 fl (9.4-12.4); NEUTROPHIL # (ANC) 9.6 K/uL (1.8-7.8); NEUTROPHIL % 74.6 %; NRBC % 0 /100WBC (0-0.00); PLATELET COUNT 206 K/uL (150-450); RBC 4.64 M/uL (3.00-5.00); RDW-CV 14.7 % (11.9-14.6); WBC 12.9 K/uL (4.0-11.0)
[2016-11-26 21:41] LABS: ALBUMIN 3.3 gm/dL (3.5-5.0); ALK PHOS 72 IU/L (33-138); ALT 14 IU/L (12-78); AST 9 IU/L (10-40); BLOOD UREA NITROGEN 23 mg/dL (6-24); CALCIUM 9.5 mg/dL (8.5-10.5); CHLORIDE 105 mMol/L (96-110); CO2 25 mMol/L (22-32); CREATININE 0.8 mg/dL (0.5-1.1); SODIUM 139 mMol/L (135-145); TOTAL PROTEIN 7.1 g/dL (6.0-8.4)
[2016-11-26 21:42] LABS: ESTIMATED GFR (MDRD EQUATION) > 60
--- NOTE | 2016-11-27 04:15 | NUR ---
Significant Event: INTERMITTENT CONFUSION TO PLACE/TIME THROUGHOUT SHIFT. LUE PIV IVF INFUSING. PT ABLE TO BEAR WT, BUT HAD SIGNIFICANT DIFFICULTY WHEN AMBULATING TO BSC WITH FWW. UNABLE TO FOLLOW SIMPLE COMMANDS. MD NOTIFIED AND AWARE OF PT'S CONDITION. EMESIS X1 AT BEGINNING OF SHIFT. NO BM'S THIS SHIFT. LEVEMIR 40U AND NOVOLOG 4U ADMINISTERED AT 2100. NS CHANGED TO D5 1/2 NS AT 0300. SON AT BEDSIDE MOST OF SHIFT. DENIED PAIN THROUGHOUT SHIFT. AFEBRILE. BBS, CTA BUT DIMINISHED. HTN. WOC CONSULT FOR NECROTIC SPOT ON LEFT 2ND TOE. ADA DIET, ACHS ACCUCHECKS MOD SS. PT SUPPOSE TO WEAR CPAP AT NIGHT BUT REFUSES IT. Follow up:
--- NOTE | 2016-11-27 10:36 | NUR ---
Diabetes consult: Patient with an A1C of 9.1%. Current blood sugars are stable with fasting 177. Patient's son reports having installed a camera to communicate and see the patient deliver her insulin at home. States he noticed the patient would attempt to inject her Novolog via the insulin pen by turning the dose dial to 13 units and dial it back to 0 units. She was not pushing the white button and delivering insulin. The son reports that now he draws up multiple doses of 13 units in a syringe that the patient is able to inject on her own for meals. The patient's inappropriate use of the pen and a lack of insulin may be reflected in her current A1C. The patient and son deny any needs. Report having plenty of insulin and supplies at home.
--- NOTE | 2016-11-27 15:18 | NUR ---
Significant Event:PT. UP TO COMMODE WITH TWO STANDBY ASSIST. HAD ONE VERY HARD FORMED BROWN STOOL THIS MORNING AND 5 STOOLS SINCE THEN. 3 STOOLS WERE INCONTINENT IN BED AND THE OTHERS SHE MADE IT TO THE COMMODE. EATING WELL AND DENIES N/V. ALERT BUT FORGETFUL. AC ABD GS BS, C-PAP AT NIGHT BUT REFUSED LAST NIGHT. LOWER EXTREMITIES HAVE VENOUS STAINING AND EDEMA, TUBIGRIPS APPLIED BILATERAL. OPEN ULCER 2ND TOE DEBREDED. IV ANTIBIOTICS. CAREMANAGER HERE AND TALKING WITH GRANDSON WHO IS CAREGIVER. Follow up:
--- NOTE | 2016-11-27 15:33 | NUR ---
Met with patient and her grandson Braulio at the bedside today. Introduced myself and the role of the CM department. Braulio has made a lot of accommodations to patient's home allowing her to stay in her own home. He has hand rails up through out the home, walk in shower with shower bench and hand held shower head, grab bars around the toilet, meals in the freezer, medications set up in med box with a call system so she can call him on camera and he can walk her through her meds, [employer], and home health care through [facility]. He is willing to increase her home health care if needed to be able to keep her at home safely. Explained that I will follow along and help with a safe discharge plan when we get closer to discharge. No other needs at this time.
--- NOTE | 2016-11-27 18:30 | NUR ---
Significant Event: Patient in my care from [id number]. Medications given as ordered. Denied complaints. Son in room for part of that time and then he left. Accucheck was 108 at 1700 and only scheduled insulin given as patient didn't require sliding scale. Follow up: Continue to monitor.
--- NOTE | 2016-11-28 04:06 | NUR ---
Significant Event: Patient alert and oriented X3, forgetful, needs reoriented at times . Up with two assist to bedside commode. Slow, but does well with cues. Gait belt and walker when up. Smear this shift with one incont void. Does not call appropriately, needs checked on. IV to L) shoulder running IVF at 75. Denies pain. Repo every 2 hours. Aloe vesta to buttocks. Elevate legs. Venous staining noted. Compression stockings on in day and off at night. PRN norvasc given around 0215 for BP 181/70. Came down to 143/63. NPO for lucio scan today. Follow up: Repo
--- NOTE | 2016-11-28 12:22 | NUR ---
I have examined the student charting and find it acceptable. KARINA Mata
--- NOTE | 2016-11-28 16:28 | NUR ---
Significant Event:PT. HAD [facility] SCAN THIS MORNING AND SHOWED BLOCKAGES IN HEART. PLAN POSSIBLE HEART CATH TOMORROW AFTER CT SCAN. ALERT BUT FORGETFUL. UP TO COMMODE WITH ONE ASSIST STANDBY. IV RESTARTED IN RIKI. AC AND HS BLOOD SUGARS. TUBIGRIPS ON TODAY. NO STOOLS TODAY. VOIDS CLEAR YELLOW URINE PER COMMODE OR INC. IN BED. PRN NORVASC GIVEN FOR HYPERTENSION. Follow up:
--- NOTE | 2016-11-29 04:53 | NUR ---
Significant Event: Patient alert and oriented X4. Forgetful at times. Reorients easily. IV to L) forearm running fluids at 75. Bicarb to be started around 0600. Up to bedside commode with 1pa, walker and gait belt. Tolerates well. VSS and on room air. Venous staining to bilateral legs. Edema noted. Patient requests to talk to about DNR, grandson was in room and talk ed to derick about being a full code. Placed note on chart and will pass on in report. NPO for possible heart cath today. to evaluate this am. Pre op check list started. Follow up: Keep NPO. Follow up code status
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
[2016-11-29 11:54] LABS: ANION GAP 11.4 (10.0-19.0); BLOOD UREA NITROGEN 9 mg/dL (6-24); CHLORIDE 107 mMol/L (96-110); CO2 27 mMol/L (22-32); CREATININE 0.7 mg/dL (0.5-1.1); ESTIMATED GFR (MDRD EQUATION) > 60; SODIUM 141 mMol/L (135-145)
[2016-11-29 11:57] LABS: POTASSIUM 4.4 mMol/L (3.7-5.1)
--- NOTE | 2016-11-29 15:27 | NUR ---
A - NUTRITION FOLLOW-UP. TX FROM [facility]. HAD [facility] SCAN AND HEART CATH. ATTEMPTED TO VISIT PT BUT HAVING PROCEDURE IN ROOM. STOOL SEEMS TO BE SLOWING DOWN. NO NEW WT. LABS: GLU 185, ALB 3.3, A1C 9.1%. MEDS: INSULIN, LASIX. DIET: CONSISTENT CARB W/ GLUCERNA BID. INTAKE 83% X6 MEALS. EST NEEDS: 8268-0653 KCAL, 104-130 GRAMS PROTEIN, FLUID NEEDS: 1ML/KCAL D - NUTRITION PROBLEM RESOLVED. I - CONTINUE WITH GLUCERNA BID. M/E - GOAL: PT WILL CONTINUE TO CONSUME >75% OF MEALS AND AT LEAST ONE ORAL SUPPLEMENT PER DAY IN 3-5 DAYS. WILL FOLLOW ORAL SUPPLEMENT ACCEPTANCE NEXT VISIT.
--- NOTE | 2016-11-29 18:01 | NUR ---
Significant Event: PT TRANSFERED FROM [facility], TO START NITRO AND LASIX GTT TO CONTROL SBP. PT A/O, CONFUSED AT TIMES, VSS, MIDLINE IV IN. OK BY DR. Land TO STOP NA BICARB ELISABETH TO START NITRO AND LASIX GTTS. LEMUEL ORDERED AND PLACED - PT TOELRATE WELL - ACCURATE I/O. NPO AFTER MIDNIGHT FOR HEART CATH TOMORROW. FRIENDS/FAMILY AT BEDSIDE OFF/ON THIS TOD. CALL LIGHT AND PERSONAL ITEMS INR EACH. QUESTIONS/CONCERNS ADDRESSED THIS TOD. Follow up: NPO AFTER MIDNIGHT, HEART CATH IN AM. SBP GOAL 140-160S - TITRATE NIRTO GTT. LASIX OVER 6 HRS. CONTINUE TO MONITER, CONTINUE PER PLAN OF CARE
[2016-11-30 04:10] LABS: ANION GAP 12.8 (10.0-19.0); BLOOD UREA NITROGEN 11 mg/dL (6-24); CALCIUM 9.1 mg/dL (8.5-10.5); CHLORIDE 102 mMol/L (96-110); CO2 29 mMol/L (22-32); CREATININE 0.7 mg/dL (0.5-1.1); ESTIMATED GFR (MDRD EQUATION) > 60; POTASSIUM 3.8 mMol/L (3.7-5.1); SODIUM 140 mMol/L (135-145)
--- NOTE | 2016-11-30 04:25 | NUR ---
Significant Event: Alert, SBP 130-170s, titrating Nitro gtt, currently on 10 mcg/min, HR 60-80s, RA, afebrile, no c/o pain, johnson had 2050 ml out, grandson at bedside, npo since mn Follow up: heart cath today
--- NOTE | 2016-11-30 13:04 | NUR ---
Significant Event: PT A/O, SOME CONFUSION AT TIMES, ANSWERS QUESTIONS APPROPRIATELY, VSS, NITRO GTT TITRTED TO KEEP [id number]. CHEST XRAY THIS AM, ORDER FOR CATH. PT LEFT FLOOR AT APPROX 1015 TO QUALITY CONTROL SPECIALIST, NOTIFIED THAT PT TRANSFERED TO ICU AT APPROX 1300. BELONGINGS TAKEN TO ROOM 6213 - BLACK BOOK BAG, [facility], [facility] BELONGING BAGS AT APPROX 1315.
--- NOTE | 2016-11-30 15:52 | NUR ---
Pt transfer from [facility] on Bipap 09/17 40%, weaned Fio2 to 30%, Pt tolerated well, will continue to monitor and wean off Bipap
--- NOTE | 2016-11-30 19:39 | NUR ---
Significant Event:CARDIO: Nitro gtt after arriving from blood bank laboratory technician for SBP >160. RESP: BIPAP 30%.
[2016-12-01 04:50] LABS: ALBUMIN 2.8 gm/dL (3.5-5.0); CALCIUM 9.3 mg/dL (8.5-10.5); TOTAL PROTEIN 6.2 g/dL (6.0-8.4)
[2016-12-01 04:52] LABS: CREATININE 1.1 mg/dL (0.5-1.1); TOTAL BILIRUBIN 0.6 mg/dL (0.0-1.5)
--- NOTE | 2016-12-01 06:29 | NUR ---
PATIENT IS A/O TIMES 3 COOPERATIVE MOVES ALL EXTREMITIES FOLLOW SIMPLE COMMANDS,CLEAR UPPER LUNGS SOUND DIMINISHED ON THE BASES,NC 2L/MIN [id number]%.RT FEMORAL SHEATH ENTERY SITE WITH SLIGHT OOZING,HEPARIN DRIP WAS DISCONTINUED AT 0200 ,BRILINTA LOADING DOES OF 180MG WAS GIVEN AT 05:[address] ANDERSON ORDER.NITROGLYCERIN DRIP AT 25 MEQ/MIN TO KEEP SBP<160. FOLLOW UP:CONTINUE TO MONITOR PATIENT'S HEMODYNAMIC AND RESPIRATORY STATUS CLOSELY.DISCONTINUE THE FEMORAL SHEATH AT 0700 AM AND DISCONTINUE INTEGRALINE DRIP AT 10:00AM.
[2016-12-01 16:39] LABS: ANION GAP 16.5 (10.0-19.0); CALCIUM 9.1 mg/dL (8.5-10.5); CREATININE 1.3 mg/dL (0.5-1.1); POTASSIUM 4.5 mMol/L (3.7-5.1)
--- NOTE | 2016-12-01 18:50 | NUR ---
Significant Event:CARDIO: No gtts, SBP 120s-140s. Afebrile. HR 70s-80s. No edema. Brilinta, Asprin 81 mg, Lovenox subq. RESP: Room air. GI: Appetite improving. : Low urine output. aware. Bicarb gtt started. Follow up:echo on 12/02
--- NOTE | 2016-12-02 05:21 | NUR ---
Significant Event: Patient is alert/oriented x3, but forgetful at times. Transferred from ICU 5 minutes prior to shift change. Vital signs are stable. On room air but requiring 1L O2 during the night to keep O2 sats > 90%. Denies any pain. Cardona in place with only 250 mL UOP; labs this AM are still pending to check renal function. Bicarb drip continues at 100 mL/hr. Patient encouraged to drink fluids. Follow up: Patient to start PT/OT today.
[2016-12-02 06:00] LABS: BASOPHIL % 0.3 %; EOSINOPHIL # 0.2 K/uL (0.0-0.5); EOSINOPHIL % 1.6 %; HEMATOCRIT 32.1 % (30.0-46.0); HEMOGLOBIN 10.7 g/dL (10.0-15.0); IMMATURE GRANULOCYTE # 0.1 K/uL (0.0-0.3); IMMATURE GRANULOCYTE % 0.4 %; LYMPHOCYTE # 2.3 K/uL (0.8-4.0); LYMPHOCYTE % 19.1 %; MCH 28.2 pg (27.0-34.0); MCHC 33.3 gm/dL (32.0-36.5); MCV 84.5 fl (83.0-98.0); MONOCYTE # 1.3 K/uL (0.0-1.0); NEUTROPHIL # (ANC) 8.1 K/uL (1.8-7.8); NEUTROPHIL % 67.6 %; NRBC % 0 /100WBC (0-0.00); PLATELET COUNT 208 K/uL (150-450); RDW-CV 14.6 % (11.9-14.6)
[2016-12-02 06:17] LABS: ANION GAP 13.1 (10.0-19.0); CALCIUM 8.9 mg/dL (8.5-10.5); CREATININE 1.5 mg/dL (0.5-1.1); POTASSIUM 4.1 mMol/L (3.7-5.1)
--- NOTE | 2016-12-02 13:30 | NUR ---
Diabetes Consult: Reviewed patient's chart and evaluated blood sugars. Currently, nursing is at bedside trying to gain IV access. Blood sugars have been elevated at 270, 345, and 368. Recommendation was written in the progress note for the provider to consider increasing her Levemir to 45 units daily to cover basal needs. Will continue to follow.
--- NOTE | 2016-12-02 14:07 | NUR ---
I WAS CALLED TO ASSESS FOR IV ACCESS. PT HAD A POWERGLIDE IN LT UPPER EXTREMITY THAT INFILTRATED AND OTHER PIV WAS NO LONGER FUNCTIONING PER HER NURSE. I ASSESSED WITH ULTRASOUND AND FOUND NO VIABLE OPTIONS FOR A PERIPHERAL IV. I CONTACTED AND TOLD HIM THAT I WAS NOT ABLE TO GET A PERIPHERAL IV AND THAT A POWERGLIDE COULD BE PLACED TOMORROW OR A CENTRAL LINE WOULD BE NEEDED IF HE WANTED ACCESS TODAY. HE STATES THAT "WE WILL HAVE TO FIGURE SOMETHING OUT LATER". I TALKED TO HER NURSE ROSETTA AND UPDATED HER ON THE SITUATION.
--- NOTE | 2016-12-02 16:33 | NUR ---
Stopped by Tomasa' room earlier this morning to visit with her and her grandson, but she was busy with nursing so I reviewed her chart and came back later. I did tricia resume [facility] on her dismissal paperwork. Attempted to come back again around 1600 to visit with Micheline and her grandson but she was sleeping and grandson wasn't in the room. Will stop by tomorrow and visit with them re:discharge plans and introduce myself and CM role.
--- NOTE | 2016-12-02 17:22 | NUR ---
Significant Event: Alert, oriented to person only. Pleasantly confused, CAM positive. SBP 130s-150, tachypneic at times, on room air while awake. Midline IV infiltrated to upper L) arm; is dressed with vaseline gauze, gauze, and tegaderm and is weeping large amounts serous fluid. Sodium bicarb had been infusing for low UOP yesterday. D/c'd by Dr Land. PICC to upper R) placed by interventional radiologist this afternoon and is ok to use. Wound to 2nd L) toe had callous trimmed by WOC, dressed with gauze and tape. Blood sugars 288, 368, 311 this shift with novolog given as ordered. Pleasant and cooperative with cares. Follow up: Elevate L) arm, apply warmth 4x/day for 15 minutes. Otherwise per plan of care.
[2016-12-03 05:01] LABS: ANION GAP 13.9 (10.0-19.0); CALCIUM 8.6 mg/dL (8.5-10.5); CREATININE 1.6 mg/dL (0.5-1.1); POTASSIUM 3.9 mMol/L (3.7-5.1)
[2016-12-03 05:21] LABS: BASOPHIL % 0.4 %; EOSINOPHIL # 0.3 K/uL (0.0-0.5); EOSINOPHIL % 2.6 %; HEMATOCRIT 30.4 % (30.0-46.0); HEMOGLOBIN 9.6 g/dL (10.0-15.0); IMMATURE GRANULOCYTE # 0.1 K/uL (0.0-0.3); IMMATURE GRANULOCYTE % 0.5 %; LYMPHOCYTE # 1.5 K/uL (0.8-4.0); LYMPHOCYTE % 14.2 %; MCH 27.7 pg (27.0-34.0); MCHC 31.6 gm/dL (32.0-36.5); MCV 87.9 fl (83.0-98.0); MONOCYTE # 1.4 K/uL (0.0-1.0); MONOCYTE % 12.9 %; MPV 11.3 fl (9.4-12.4); NEUTROPHIL # (ANC) 7.3 K/uL (1.8-7.8); NEUTROPHIL % 69.4 %; NRBC % 0 /100WBC (0-0.00); PLATELET COUNT 170 K/uL (150-450); RBC 3.46 M/uL (3.00-5.00); RDW-CV 14.6 % (11.9-14.6); WBC 10.5 K/uL (4.0-11.0)
--- NOTE | 2016-12-03 05:23 | NUR ---
Significant Event:Patient more alert throughout the shift by the end patient alert to person and place. VSS on RA and 1L/NC when sleeping. Repositioned Q2h. Cardona to DD with 1450 uop. PICC to R)upper arm infusing bicarb at 75ml/h. R)groin C/D/I. PT consulted. BG 394 12 units novalog with 40 units levemir. Follow up:CM to work on discharge planning.
--- NOTE | 2016-12-03 11:18 | NUR ---
A-NUTRITION F/U LABS: AN 135, K+ 3.9, GLU 176, BUN 34, ENROBING MACHINE CORDER 1.6, ALB 2.8 MEDS: BRILINTA, BICARB DIET RX; CARDIAC. PO INTAKE BITES/SIP-100%; AVG PO INTAKE 84% SINCE LAST F/U. RECEIVING GLUCERNA BID; TAKING WELL. EST NUTR NEEDS: [id number] KCALS AND 104-130 GM PROTEIN D-NOT AT NUTRITION RISK; NO NUTRITION DX IDENTIFIED M-DECREASE GLUCERNA TO QD AT [facility] E-GOAL: PO INTAKE >/=75% FOR DURATION OF ADMIT 1)F/U PO INTAKE, SUPPLEMENT, AND POC IN 3-5 DAYS 2)ASSIST NEEDED
--- NOTE | 2016-12-03 14:20 | NUR ---
Introduced self and CM role to Micheline's grandson. He states that the original plan was for her to come home with him, but because she is weaker, he thinks she might benefit from a skilled stay. First choice would be TCU, I did place her on the list, but explained to him that they were full at this time so looking in the community might be an option we go with. Her PCP is Dr. Brandon. Tam has no preference on which SNF we look into for her to go to. I also went over options such as HHC, private caregivers with him. He states that HHC is fine, but he think that she needs more help than what they can offer right now. They have had private caregivers in the past with [facility], but he feels that a skilled facility would benefit her more than what private caregivers would at this point. I let him know that I would review therapy notes and then come back and talk with Micheline about going to a SNF upon discharge instead of back home with HHC. When asked if he thought she would be in agreement to going, he states, "I am not forsure, but I am not home all the time to take care of her all the time so I think she needs to go to a skilled facility for a short time before she comes homes." Let him know that I would come back and talk with her about SNF placement, but she had to be in agreement to let me make referrals and to go to SNF upon discharge before I could proceed. He was fine with this. Plan to review her notes and go back and visit with her this afternoon.
--- NOTE | 2016-12-03 17:54 | NUR ---
Significant Event: A/O x3, cooperative with cares. VSS, SBPs 100-140s, HRs 70-80s, on room air. No c/o pain. Cardona patent et draining dilute light yellow urine, 1050 ml out this shift. Up with assist of 2 et walker; up to chair; worked with physical therapy. Dressing changed to skin tear on upper L) arm. Follow up:
--- NOTE | 2016-12-04 04:45 | NUR ---
Significant Event:Alert to person and place. SR HR 70-80s. Afebrile. RA while awake and 1L/NC when sleeping. SBP 100-130s. Held 2300/0500 dose of lopressor d/t low pressures. Sodium bicard discontinued at start of shift. Cardona to DD with 1350 UOP in 12 hours. Repositioned Q2H. Transfers heavy 2 assist with walker and gaitbelt needing lots of ques. BG 272 at HS. Follow up:CM working on placement. Continue to have PT work with patient.
[2016-12-04 04:47] LABS: ANION GAP 9.8 (10.0-19.0); CALCIUM 8.8 mg/dL (8.5-10.5); CREATININE 1.5 mg/dL (0.5-1.1); POTASSIUM 3.8 mMol/L (3.7-5.1)
--- NOTE | 2016-12-04 10:08 | NUR ---
Received call from Annita ARCOS at [facility]. They will be up to evaluate patient at 1500 today for skilled stay.
--- NOTE | 2016-12-04 17:01 | NUR ---
Talked with patient and grandson Braulio at bedside. TCU remains full, [facility] can accept but not until next week. [facility] assessed today and we are waiting to hear from them if they can accept and if will accept this week. They are okay with that, [facility] probably their first choice of 2 as they know people there. Sc[facility] Single will talk with patient and call Braulio tomorrow once we know a plan.
--- NOTE | 2016-12-04 17:50 | NUR ---
Significant Event: VERY PLEASENT AND COOPERATIVE LADY. ALSO VERY FORGETFUL. WALKED IN LOVE WITH WALKER AND ASSIST OF 2 THIS AM. SAT UP IN RECLINER MOST OF THIS SHIFT. HAS DENIED NEEDS OR PAIN. A COUPLE OF NURSING HOMES HERE TODAY TO INTERVIEW PT. SHE THINKS THIS WILL BE OK FOR A WHILE. GRANDSON HERE ON AND OFF ALL SHIFT, VERY ATTENTIVE AND REALISTIC TO HER HEALTH CARE NEEDS. Follow up: MONITOR
--- NOTE | 2016-12-05 04:11 | NUR ---
Significant Event:Patient need much better transfering from chair to bed tonight, still a two assist with walker and gaitbelt. VSS on RA and home dose of 1L/NC at night. Repositioned q2h. Cardona to DD with 1000ml output. Dual-luman PICC to R)upper arm saline locked with good blood return. No BM since on [facility], patient reports having passed lots of gas and when transfering tonight she did have a streak on the green pad. No reports of discomfort or pain. Follow up:CM to f/u on placement to [facility]. Possible discharge if accepted.
--- NOTE | 2016-12-05 09:49 | NUR ---
Received call from Annita ARCOS at [facility]. They can accept patient for admission on Friday but only if her orthotics will be either obtained prior to discharge from the hospital or after discharge from her skilled stay. I called and spoke with Dr Brandon. He states orthotics can be done after her skilled stay. I called and updated Braulio (grandson) who understands situation about oirthotics. He is in agreement with [facility]. I called Annita back and they will accept patient Friday. will continue to follow.
[2016-12-05 10:54] LABS: ANION GAP 15.3 (10.0-19.0); CALCIUM 9.4 mg/dL (8.5-10.5); CREATININE 1.2 mg/dL (0.5-1.1); POTASSIUM 4.3 mMol/L (3.7-5.1)
--- NOTE | 2016-12-05 12:39 | NUR ---
Social visit with patient today. I updated her that [facility] can admit her tomorrow. She is in agreement with discharge plans. I also called and updated Dr Brandon that patient can be discharged to [facility] in AM. Will continue to follow.
--- NOTE | 2016-12-05 19:13 | NUR ---
Significant event: Alert. Oriented x 3 at times, is sometimes disoriented to time. Has been moving well today, with minimal need for cues. Cardona out, patient has voided once. Had 2 small BM's. On RA. SBP 140-150's. Follow Up: [facility] tomorrow.
--- NOTE | 2016-12-06 05:16 | NUR ---
Significant events: Pt A/Ox3. VSS, on RA. No complaints of pain. Up 2PA. Adequate UOP following johnson removal. R) upper PICC in place. Slept most of shift. DC to [facility] today.
--- NOTE | 2016-12-06 08:45 | NUR ---
Patient is alert, oriented to person and place. Forgetful at times. HR sinus rythm, 60's. Afebrile. 98% on Room air. Lung sounsd clear/diminished. Bowel sounds active, had 2 small BM's 12/05/16. Incontinent of urine at times. Trace edema to tibial area. Venous staining to lower legs. Has been using tubigrip to bilateral lower legs during AM, and off HS. L) 2nd toe is open to air, scabbed over. 2 assist with walker and gaitbelt, requires cues at times. Has been moving fairly well with minimal cues yesterday and today. Wears 1 Liter of oxygen at night. Denies pain.
--- NOTE | 2016-12-06 09:00 | NUR ---
Spoke with Annita at [facility]. arrangements made for derick to be picked up at 10:30. I called and updated patients grandglendy Braulio and patients nurse Gonzalez.
== END 2016-12-06 10:30 | DRG 246 ==
LOC: GMSU 14:49 → GICU 11-28 08:00 → GMSU 11-28 08:00 → GPCU 11-29 12:42 → GICU 11-30 13:01 → GPCU 12-01 18:05
PROVIDERS: Internal Medicine Interventional Cardiology; ADMIT Family Medicine
PROC: 027035Z Dilation of Coronary Artery, One Artery with Two Drug-eluting Intraluminal Devices, Percutaneous Approach (ICD-10-PCS; principal; 2016-11-30)
PROC: 3E033PZ Introduction of Platelet Inhibitor into Peripheral Vein, Percutaneous Approach (ICD-10-PCS; principal; 2016-11-30)
PROC: 4A023N7 Measurement of Cardiac Sampling and Pressure, Left Heart, Percutaneous Approach (ICD-10-PCS; principal; 2016-11-30)
PROC: B2111ZZ Fluoroscopy of Multiple Coronary Arteries using Low Osmolar Contrast (ICD-10-PCS; principal; 2016-11-30)
PROC: 02C03ZZ Extirpation of Matter from Coronary Artery, One Artery, Percutaneous Approach (ICD-10-PCS; principal; 2016-11-30)
PROC: B2141ZZ Fluoroscopy of Right Heart using Low Osmolar Contrast (ICD-10-PCS; 2016-12-02)
PROC: 02H633Z Insertion of Infusion Device into Right Atrium, Percutaneous Approach (ICD-10-PCS; 2016-12-02)
DX: I25.110 Atherosclerotic heart disease of native coronary artery with unstable angina pectoris (principal); I50.43 Acute on chronic combined systolic (congestive) and diastolic (congestive) heart failure; I21.3 ST elevation (STEMI) myocardial infarction of unspecified site; I75.89 Atheroembolism of other site; Z68.42 Body mass index [BMI] 45.0-49.9, adult; B34.9 Viral infection, unspecified; E11.621 Type 2 diabetes mellitus with foot ulcer; E11.41 Type 2 diabetes mellitus with diabetic mononeuropathy; L97.529 Non-pressure chronic ulcer of other part of left foot with unspecified severity; E11.65 Type 2 diabetes mellitus with hyperglycemia; Z79.4 Long term (current) use of insulin; I87.2 Venous insufficiency (chronic) (peripheral); I11.0 Hypertensive heart disease with heart failure; I25.84 Coronary atherosclerosis due to calcified coronary lesion; E78.5 Hyperlipidemia, unspecified; E66.9 Obesity, unspecified; L84 Corns and callosities; Z95.5 Presence of coronary angioplasty implant and graft; M19.90 Unspecified osteoarthritis, unspecified site; G47.30 Sleep apnea, unspecified; Z85.42 Personal history of malignant neoplasm of other parts of uterus; Z79.82 Long term (current) use of aspirin; Z96.653 Presence of artificial knee joint, bilateral; Z96.641 Presence of right artificial hip joint; Z66 Do not resuscitate; E86.0 Dehydration
CPT/HCPCS: A9500; C1725; C1751; C1757; C1769; C1874; C1887; C9600; G0378; J0360; J0696; J1327; J1644; J1650; J1940; J2405; J2785; J3010; J7030; J7040; J7060; Q9967

== ENCOUNTER → 2017-02-11 | Emergency (ER) | payer MEDICARE, BC | END | disposition disaster alternative care site (69) | LOC: GAMB 16:35 | DX: I46.9 Cardiac arrest, cause unspecified (principal) ==